=== PATIENT | male | born 1960 | race Caucasian/White ===

== ENCOUNTER 2021-08-07 07:39 | Outpatient (CLI) | payer OTHER ==
[~2021-08-07] VITALS: Ht 172.7 cm; Wt 98.6 kg
[2021-08-07] MEDS ORDERED: SPIRIVA RE2.5 MCG/Ac IH (08:33)
[2021-08-07] MEDS ORDERED: CRESTOR 10MG10 MG PO (08:34)
[2021-08-07] MEDS ORDERED: PROTONIX 40MG T40 MG PO (08:34)
[2021-08-07] MEDS ORDERED: TOPROL XL 25MG25 MG PO (08:35)
[2021-08-07] MEDS ORDERED: CLARITIN 1010 MG/TAB PO (08:35)
[2021-08-07] MEDS ORDERED: ELIQUIS 5MG PO (08:36)
[2021-08-07] MEDS ORDERED: SYNTHROID0.112 MG/T PO (08:36)
[2021-08-07 08:37] VITALS: BP 138/91; PULSE 61; TEMP 98
[2021-08-07] MEDS ORDERED: CEPHALEXIN500 M1 PO (09:02)
[2021-08-07 09:15] VITALS: BP 141/83; PULSE 79
--- NOTE | 2021-08-07 09:42 | NUR ---
Discharge instructions given to pt.Pt verbalizes understanding.Pt escorted out by this nurse.
== END 2021-08-07 09:45 ==
LOC: COL.CAR 07:39
DX: I48.0 Paroxysmal atrial fibrillation (principal); R00.2 Palpitations; E78.2 Mixed hyperlipidemia; I34.0 Nonrheumatic mitral (valve) insufficiency; Z79.82 Long term (current) use of aspirin; Z79.899 Other long term (current) drug therapy; Z79.890 Hormone replacement therapy; Z87.891 Personal history of nicotine dependence; Z80.0 Family history of malignant neoplasm of digestive organs; Z83.3 Family history of diabetes mellitus
CPT/HCPCS: C1764

== ENCOUNTER → 2021-11-06 | Outpatient (CLI) | payer OTHER ==
[~2021-11-06] MED LIST: CEPHALEXIN500 M1 PO; CLARITIN 1010 MG/TAB PO; CRESTOR 10MG10 MG PO; ELIQUIS 5MG PO; PROTONIX 40MG T40 MG PO; SPIRIVA RE2.5 MCG/Ac IH; SYNTHROID0.112 MG/T PO; TOPROL XL 25MG25 MG PO
== END ==
LOC: COL.PUL 09:42
DX: R06.02 Shortness of breath (principal)
CPT/HCPCS: J7674